=== PATIENT | female | born 1955 | race Caucasian/White ===

== ENCOUNTER 2023-03-02 14:40 | Day surgery (SDC) | payer OTHER, BC ==
[2023-02-28 11:00] VITALS: BMI 30.6
[~2023-03-02 14:40] MED LIST: BUPIVACAINE HCL/PF 0.5% (5MG/ML) 10 ML VIAL ONE; BUPIVACAINE LIPOSOME/PF (EXPAREL) 266 MG/20 ML VIAL ONE; DEXAMETHASONE SOD PHOSPHATE 4 MG/1 ML VIAL ONE; MAG HYDROX/AL HYDROX/SIMETH 30 ML UNIT-DOSE CUP PO PRN; MAGNESIUM HYDROX 2400MG/30ML ORAL SUSPENSION 30 ML CUP PO PRN; MIDAZOLAM HCL 2 MG/2 ML SINGLE DOSE VIAL ONE; ONDANSETRON 4 MG/2 ML VIAL IVPUSH PRN; ONDANSETRON 4 MG/2 ML VIAL ONE; PROPOFOL 40 ML ONE; SODIUM CHLORIDE 0.9% P/F 10 ML VIAL IJ ONE; TRANEXAMIC ACID 1000 MG/10 ML VIAL ONE; ceFAZolin SODIUM 1 GM VIAL ONE
[2023-03-02] MEDS ORDERED: ONDANSETRON 4 MG/2 ML VIAL IVPUSH PRN (14:54)
[2023-03-02] MEDS ORDERED: LACTATED RINGERS SOLUTION 1,000 ML IV SCH (15:00)
[2023-03-02] MEDS ORDERED: ACETAMINOPHEN INJECTION 100 ML IVPB ONE (15:04)
[2023-03-02] MEDS: ACETAMINOPHEN 1000 MG/100 ML BAG IVPB SCH ×3 (15:10→23:26)
[2023-03-02] MEDS: oxyCODONE HCL 5 MG TABLET PO PRN ×4 (16:02→21:52)
[2023-03-02] MEDS ORDERED: oxyCODONE HCL 5 MG TABLET ONE (16:04)
[2023-03-02 18:53] VITALS: RESP 17
[2023-03-02] MEDS: CEFAZOLIN SODIUM 2 GM in DEXTROSE 5%-WATER 100 ML IVPB SCH (20:30)
[2023-03-02] MEDS: SENNOSIDES/DOCUSATE COMBO (SENNA PLUS) TABLET (UD) PO SCH (21:53)
[2023-03-02] MEDS ORDERED: FLUTICASONE PROP 0.05% 16 GM NASAL SPRAY NS SCH (22:00)
[2023-03-02] MEDS ORDERED: [UNRECOGNIZED DRUG - REMARK] NS SCH ×2 (22:00)
[2023-03-02] MEDS ORDERED: LORATADINE 10 MG TABLET PO SCH (22:00)
[2023-03-02] MEDS ORDERED: PATIENT'S OWN MEDICATION (NON-FORMULARY) (Cetirizine Hcl [Zyrtec] 10 MG Tablet) PO SCH (22:00)
[2023-03-02] MEDS ORDERED: CEFAZOLIN SODIUM 2 GM in DEXTROSE 5%-WATER 100 ML IVPB ONE (22:29)
[2023-03-02] MEDS ORDERED: TRANEXAMIC ACID 1000 MG/10 ML VIAL IVPUSH ONE (22:29)
[2023-03-02] MEDS: CELECOXIB 100 MG CAPSULE PO SCH (23:24)
[2023-03-02] MEDS: ASPIRIN 81 MG CHEWABLE TABLETS PO SCH (23:25)
[2023-03-02] MEDS: FAMOTIDINE 20 MG TABLET PO SCH (23:25)
[2023-03-03] MEDS: CEFAZOLIN SODIUM 2 GM in DEXTROSE 5%-WATER 100 ML IVPB SCH (04:40)
[2023-03-03] MEDS: ACETAMINOPHEN 1000 MG/100 ML BAG IVPB SCH ×2 (06:47→14:25)
[2023-03-03 09:51] VITALS: PULSE 101
[2023-03-03] MEDS ORDERED: DEXAMETHASONE 4 MG TABLET (FP) PO ONE (10:00)
[2023-03-03] MEDS: ASPIRIN 81 MG CHEWABLE TABLETS PO SCH (10:38)
[2023-03-03] MEDS: CELECOXIB 100 MG CAPSULE PO SCH (10:38)
[2023-03-03] MEDS: FAMOTIDINE 20 MG TABLET PO SCH (10:40)
[2023-03-03] MEDS: SENNOSIDES/DOCUSATE COMBO (SENNA PLUS) TABLET (UD) PO SCH (10:48)
[2023-03-03] MEDS: oxyCODONE HCL 5 MG TABLET PO PRN (10:49)
[2023-03-03 14:10] VITALS: BP 139/66; TEMP 98.2
== END 2023-03-03 18:35 | disposition home or self-care (01) ==
LOC: FM/S 14:40 → FASUSAT 14:40 → FM/S 16:17 → FASUSAT 03-03 18:35
PROVIDERS: ATTEND Orthopaedic Surgery
PROC: 0SRD0J9 Replacement of Left Knee Joint with Synthetic Substitute, Cemented, Open Approach (ICD-10-PCS; principal; 2023-03-02 12:50)
DX: M17.12 Unilateral primary osteoarthritis, left knee (principal)
CPT/HCPCS: 27447; C1776; 73560-TC-LT-FY; 94760; 97010-GP; 97116-GP; 97162-GP; C1889